=== PATIENT | female | born 2000 | race Caucasian/White ===

== ENCOUNTER 2020-01-17 22:54 | Emergency (ER) | payer MEDICAID, SELFPAY ==
[2020-01-17 23:37] VITALS: BP 118/73; PULSE 116; RESP 18; TEMP 36.7; O2SAT 98; BMI 21.2
--- NOTE | 2020-01-18 00:01 | USR_ITS ---
PROCEDURE INFORMATION: Exam: US First Trimester, Transabdominal Exam date and time: 01/18/2020 12:43 AM Age: 20 years old Clinical indication: Lmp or gestational age (in weeks): 7w5d; Other: Spotting x2 hrs; ; Additional info: Cramping, vaginal bleeding TECHNIQUE: Imaging protocol: Real-time transabdominal obstetrical ultrasound of the maternal pelvis and a first trimester , less than 14 weeks 0 days, with image documentation. COMPARISON: [facility] OB > 14 weeks 07/19/2018 9:27 AM FINDINGS: Gestation: Single, live intrauterine with a crown-rump length compatible with a 7 week, 3 day gestation. The heart rate is 150 beats per minute. The estimated due date is 09/02/2020. MATERNAL: Uterus: Unremarkable. Cervix: Unremarkable. Right adnexa: The right ovary is not visualized, likely secondary to bowel gas. Left adnexa: 2.1 cm simple left ovarian cyst, within physiologic range. Intraperitoneal space: No intraperitoneal free fluid. Urinary bladder: The visualized portion of the urinary bladder is unremarkable. US/US OB <= 14 weeks fetus [id number] IMPRESSION: Single, live intrauterine with a crown-rump length compatible with a 7 week, 3 day gestation. The heart rate is 150 beats per minute.
[2020-01-18 00:30] VITALS: BP 117/80; RESP 16
[2020-01-18 00:36] LABS: Basophils % 0.4 %; Hematocrit 39.6 % (37.0-47.0); Hemoglobin 12.8 g/dL (11.5-15.3); Lymphocytes # 1.7 10^3/uL (0.8-4.8); Lymphocytes % 22.1 %; Mean Corpuscular HGB Conc 32.3 g/dL (30.0-36.0); Mean Corpuscular Hemoglobin 29.4 pg (28.0-34.0); Mean Platelet Volume 11.3 fL (7.4-10.4); Monocytes # 0.5 10^3/uL (0.2-0.9); Monocytes % 6.8 %; Neutrophils # 5.31 10^3/uL (1.8-7.7); Neutrophils % 70.3 %; Nucleated Red Blood Cells % 0 %; Platelet Count 242 10^3/cmm (130-400); Red Blood Count 4.35 10^6/uL (4.1-5.3); Red Cell Distribution Width 13.2 % (12.1-15.1); White Blood Count 7.6 10^3/uL (4.0-10.0)
[2020-01-18 00:45] LABS: Add Urine Microscopic? NO
[2020-01-18 00:50] LABS: Bilirubin Urine Neg (NEGATIVE); Blood Urine Neg (Negative); Glucose Urine UA Norm (Normal); Ketones Urine Negative (Negative); Leukocyte Esterase Urine Negative (Negative); Nitrate Urine Negative (Negative); Protein Urine Neg (Negative); Urine Appearance Clear (CLEAR); Urine Color Straw (Yellow); Urobilinogen Urine Norm (Negative); pH Urine 7 (5-7)
[2020-01-18] MEDS: sodium chloride 0.9% 1,000 ML 999 ML IV (00:55)
[2020-01-18 01:09] LABS: Alanine Aminotransferase 10 U/L (0-33); Albumin Level 4.3 g/dL (3.5-5.2); Alkaline Phosphatase 40 IU/L (35-105); Blood Urea Nitrogen 8 mg/dL (6-20); Calcium 9.6 mg/dL (8.5-10.5); Carbon Dioxide 23 mmol/L (22-29); Chloride 105 mmol/L (98-107); Creatinine Clr Calc Pharmacy 123.5464; Globulin 2.3 g/dL (1.3-4.6); Glucose 98 mg/dL (65-115); Osmolality Calculated 282 mOsm/kg (285-295); Sodium 138 mmol/L (136-145); Total Bilirubin 0.2 mg/dL (0.15-1.2); Total Protein 6.6 g/dL (6.6-8.7)
[2020-01-18 01:14] LABS: Anion Gap 14.8 (5-19); Aspartate Amino Transferase 18 U/L (0-32); Potassium 4.8 mmol/L (3.5-5.1)
[2020-01-18 02:33] VITALS: BP 121/82; PULSE 61; RESP 16
--- NOTE | 2020-01-18 18:23 | W.ED.PREGNAN ---
HPI - General: Chief complaint: Vaginal Bleeding Stated complaint: x 8 weeks, spotting Time Seen by Provider: 01/17/20 23:43 History of Present Illness: HPI Narrative: 20-year-old female believes she is somewhere between 2 to 3 months . She presents today with some spotting, after intercourse. No clots. She is cramping a bit. No fever, no vomiting, no other significant symptoms. 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 She is a G5, P1. MD Complaint: abdominal pain and vaginal bleeding Onset (ago): hour(s) Pain Consistency: intermittent Location: pelvis Severity: moderate Quality: Cramping Radiation: pelvis Relieving factors: none Exacerbating factors: none Vaginal discharge: none Vaginal bleeding: light Date of Last Menstrual Period: 11/22/19 Associated symptoms: Reports abdominal pain and nausea; Deny dysuria, headache(s) or vomiting Related Data: : 2 Review of Systems Const: Denies: fever(s) or chills ENMT: Denies: bleeding gums or sinus pain Card: Denies: chest pain or palpitations Resp: Denies: dyspnea, productive cough, non-productive cough or wheezing GI: Reports: abdominal pain and nausea; Denies: vomiting : Denies: dysuria or hematuria Musc: Reports: back pain; Denies: neck pain Skin/Breast: Denies: rash, pruritus or erythema Neuro: Denies: headache(s) or dizziness Psych: Denies: anxiety PFSH ED PFSH: Social History Current gender identity: Female Female Reproductive History: Date of last menstrual period: 11/22/19 : 2 Physical Exam Const: GENERAL APPEARANCE: well developed ORIENTATION/CONSCIOUSNESS: Yes oriented to person, Yes oriented to place and Yes oriented to time HENMT: COMMON NORMALS: normocephalic, external ears normal and Normal external nose present HEAD & SCALP: normocephalic FACE & SINUS: normal facial exam NOSE: Normal external nose present and No nasal discharge present EXTERNAL EAR: Yes external ears normal MOUTH: tongue normal Eye: COMMON NORMALS: Equal, round and reactive pupils present, EOMs intact bilaterally and conjunctivae normal EYELID: eyelids normal CONJUNCTIVA: Yes conjunctivae normal PUPIL: Yes Equal, round and reactive pupils present Neck/C-Spine: GENERAL: No tracheal deviation Chest: COMMONS NORMALS: normal inspection of the chest CHEST: No tenderness Resp: COMMON NORMALS: clear to auscultation bilaterally EFFORT & INSPECTION: No tachypneic, No respiratory distress, No retractions, No uses accessory muscles and No tracheal deviation AUSCULTATION: clear to auscultation bilaterally, no rhonchi, no wheezes and lung sounds not diminished Cardio: COMMON NORMALS: regular rate and regular rhythm RATE: regular rate RHYTHM: regular rhythm HEART SOUNDS: no murmurs PERIPHERAL PULSES: radial pulses present GI: INSPECTION: No abdominal distension AUSCULTATION: No Hyperactive bowel sounds present and No Hypoactive bowel sounds present PALPATION: Yes Tenderness to palpation present (GI) (Mild pelvic), No Guarding due to palpation present (GI) and No Rigid due to palpation PERCUSSION: no dullness to percussion and no tympanic to percussion : COMMON NORMALS: Yes no CVA tenderness BLADDER/KIDNEY EXAM: Yes no CVA tenderness Back/Pelvis: COMMON NORMALS: no CVA tenderness Neuro: SENSORIUM/ORIENTATION: Yes oriented to person, Yes oriented to place and Yes oriented to time Psych: COMMON NORMALS: mental status grossly normal Skin: COMMON NORMALS: no rashes or lesions noted GENERAL SKIN EXAM: no rashes or lesions noted Course Vital Signs: Vital signs: Vital Signs Temperature 98.1 F 01/17/20 23:37 Pulse Rate 61 01/18/20 02:33 Respiratory Rate 16 01/18/20 02:33 Blood Pressure 121/82 01/18/20 02:33 Pulse Oximetry 98 01/17/20 23:37 MDM - OB/Uterine Contractions MDM Narrative: Medical decision making narrative: Labs are normal. Serum quantitative test is appropriate. Urinalysis is negative. Ultrasound reveals an intrauterine of appropriate date. Good heart rate. Cervix is closed. Lab Data: Labs: Lab Results 01/18/20 01/18/20 01/18/20 Range/Units 00:23 00:23 00:23 WBC 7.6 (4.0-10.0) 10^3/ uL RBC 4.35 (4.1-5.3) 10^6/u L Hgb 12.8 (11.5-15.3) g/dL Hct 39.6 (37.0-47.0) % MCV 91.0 (81-99) fL MCH 29.4 (28.0-34.0) pg MCHC 32.3 (30.0-36.0) g/dL RDW 13.2 (12.1-15.1) % Plt Count 242 (130-400) 10^3/c mm MPV 11.3 H (7.4-10.4) fL Neut % (Auto) 70.3 % Lymph % (Auto) 22.1 % [place] % (Auto) 6.8 % Eos % (Auto) 0.0 % Baso % (Auto) 0.4 % Neut # (Auto) 5.31 (1.8-7.7) 10^3/u L Lymph # (Auto) 1.7 (0.8-4.8) 10^3/u L [place] # (Auto) 0.5 (0.2-0.9) 10^3/u L Eos # (Auto) 0.0 (0.0-0.8) 10^3/u L Baso # (Auto) 0.0 (0.0-0.1) 10^3/u L Nucleated RBC % (a uto) 0 % Nucleated RBCs # 0.0 /100WBC Sodium 138 (136-145) mmol/L Potassium 4.8 (3.5-5.1) mmol/L Chloride 105 (98-107) mmol/L Carbon Dioxide 23 (22-29) mmol/L Anion Gap 14.8 (5-19) BUN 8 (6-20) mg/dL Creatinine 0.6 (0.5-0.9) mg/dL GFR Calculation 125.0 (90-130) mL/min Glucose 98 (65-115) mg/dL Calculated Osmolal ity 282 L (285-295) mOsm/k g Calcium 9.6 (8.5-10.5) mg/dL Total Bilirubin 0.2 (0.15-1.2) mg/dL AST 18 (0-32) U/L ALT 10 (0-33) U/L Alkaline Phosphata se 40 (35-105) IU/L Total Protein 6.6 (6.6-8.7) g/dL Albumin 4.3 (3.5-5.2) g/dL Globulin 2.3 (1.3-4.6) g/dL Ser , Kiki i-Qnt 760187.00 mIU/mL Urine Color (Yellow) Urine Appearance (CLEAR) Urine pH (5-7) Ur Specific Gravit y (1.005-1.030) Urine Protein (Negative) Urine Glucose (UA) (Normal) Urine Ketones (Negative) Urine Blood (Negative) Urine Nitrate (Negative) Urine Bilirubin (NEGATIVE) Urine Urobilinogen (Negative) mg/dL Ur Leukocyte Amelia ase (Negative) Blood Type O Positive Rho(D) Type Positive 01/18/20 Range/Units 00:33 WBC (4.0-10.0) 10^3/ uL RBC (4.1-5.3) 10^6/u L Hgb (11.5-15.3) g/dL Hct (37.0-47.0) % MCV (81-99) fL MCH (28.0-34.0) pg MCHC (30.0-36.0) g/dL RDW (12.1-15.1) % Plt Count (130-400) 10^3/c mm MPV (7.4-10.4) fL Neut % (Auto) % Lymph % (Auto) % [place] % (Auto) % Eos % (Auto) % Baso % (Auto) % Neut # (Auto) (1.8-7.7) 10^3/u L Lymph # (Auto) (0.8-4.8) 10^3/u L [place] # (Auto) (0.2-0.9) 10^3/u L Eos # (Auto) (0.0-0.8) 10^3/u L Baso # (Auto) (0.0-0.1) 10^3/u L Nucleated RBC % (a uto) % Nucleated RBCs # /100WBC Sodium (136-145) mmol/L Potassium (3.5-5.1) mmol/L Chloride (98-107) mmol/L Carbon Dioxide (22-29) mmol/L Anion Gap (5-19) BUN (6-20) mg/dL Creatinine (0.5-0.9) mg/dL GFR Calculation (90-130) mL/min Glucose (65-115) mg/dL Calculated Osmolal ity (285-295) mOsm/k g Calcium (8.5-10.5) mg/dL Total Bilirubin (0.15-1.2) mg/dL AST (0-32) U/L ALT (0-33) U/L Alkaline Phosphata se (35-105) IU/L Total Protein (6.6-8.7) g/dL Albumin (3.5-5.2) g/dL Globulin (1.3-4.6) g/dL Ser , Kiki i-Qnt mIU/mL Urine Color Straw (Yellow) Urine Appearance Clear (CLEAR) Urine pH 7 (5-7) Ur Specific Gravit y 1.000 L (1.005-1.030) Urine Protein Neg (Negative) Urine Glucose (UA) Norm (Normal) Urine Ketones Negative (Negative) Urine Blood Neg (Negative) Urine Nitrate Negative (Negative) Urine Bilirubin Neg (NEGATIVE) Urine Urobilinogen Norm (Negative) mg/dL Ur Leukocyte Amelia ase Negative (Negative) Blood Type Rho(D) Type Discharge Plan Discharge Patient Disposition: Home Clinical Impression: Intrauterine , PCB (post coital bleeding) Condition: Stable Discharge Orders: Discharge Order (Routine); Ordered 01/18/20 Ordered By: Robby White Referrals: Burton Limon MD [Primary Care Provider] - 4-7 days Discharge Diet: Usual diet Discharge Activity: Limit activity as instructed Patient Instructions: Threatened Miscarriage (ED), (ED) Activity Restrictions/Additional Instructions: Your ultrasound revealed a normal . Since you have spotted, you are to remain on pelvic rest until cleared by your doctor. This means no sexual intercourse, no lifting greater than 10 to 15 pounds, and limiting stairs and squatting. Return for passing blood clots, soaking more than 1 pad per hour for more than 3 hours, worsening pain, fever greater than 100, other concerning symptoms. Discharge Date/Time: 01/18/20 02:40 Coding Level of Care Code ED Transportation Analyst for Lisa Fwd Exam Comprehensive
== END 2020-01-18 02:40 | disposition home or self-care (01) ==
PROVIDERS: Emergency Provider Emergency Medicine; PCP Family Medicine
DX: O46.8X1 Other antepartum hemorrhage, first trimester (principal); Z3A.01 Less than 8 weeks gestation of pregnancy
CPT/HCPCS: 12345; 76801; 80053; 81003; 84702; 85025; 86900; 96360; 99282; 99283; J7030

== ENCOUNTER → 2020-01-28 14:51 | Outpatient (BNVA) | payer MEDICAID, SELFPAY | PROVIDERS: PCP Family Medicine; Visit Provider Psychiatry & Neurology Psychiatry | DX: F33.1 Major depressive disorder, recurrent, moderate (principal); F43.10 Post-traumatic stress disorder, unspecified | CPT/HCPCS: 90792 ==

== ENCOUNTER 2020-06-28 02:46 | Outpatient (CLI) | payer MEDICAID, SELFPAY ==
[2020-06-28 02:46] VITALS: BMI 22.1
[2020-06-28 02:55] VITALS: BP 110/73; PULSE 104; TEMP 36.2
[2020-06-28 03:15] VITALS: BP 120/78; PULSE 105
[2020-06-28 03:20] VITALS: PULSE 94; O2SAT 100
[2020-06-28 03:25] VITALS: PULSE 98; O2SAT 100
[2020-06-28 03:30] VITALS: BP 120/78; PULSE 98; RESP 16; TEMP 36.2; O2SAT 100
== END 2020-06-28 03:35 | disposition home or self-care (01) ==
LOC: OPOB 02:47 → OBGYN 02:47
PROVIDERS: PCP Family Medicine; Visit Provider Family Medicine
DX: O26.899 Other specified pregnancy related conditions, unspecified trimester (principal); Z3A.00 Weeks of gestation of pregnancy not specified; R10.9 Unspecified abdominal pain
CPT/HCPCS: 59025; 99211

== ENCOUNTER 2020-07-04 21:47 | Outpatient (CLI) | payer MEDICAID, SELFPAY ==
[2020-07-04 22:16] VITALS: TEMP 37
[2020-07-04] MEDS: ondansetron 4 MG Tablet PO (22:16)
[2020-07-04 22:26] VITALS: BMI 26.7
[2020-07-04 22:56] LABS: Add Urine Culture? No; Bacteria Urine 2+ /hpf; Bilirubin Urine Neg (Negative); Blood Urine Neg (Negative); Glucose Urine UA Norm (Normal); Ketones Urine Negative (Negative); Leukocyte Esterase Urine 2+ (Negative); Nitrate Urine Negative (Negative); Protein Urine Neg (Negative); RBC Urine 0-4 /hpf (0-2); Squamous Epithelial Cell Urine TOO NUMEROUS TO CNT /hpf (0-5); Urine Color Yellow (Yellow); Urobilinogen Urine 1 mg/dL (Negative); WBC Urine >100 /hpf (0-5); pH Urine 6 (5-7)
[2020-07-04 23:15] VITALS: BP 109/70; PULSE 173; TEMP 36.7
[2020-07-04 23:25] LABS: Amphetamines Screen Urine Negative (Negative); Barbiturates Screen Urine Negative (Negative); Benzodiazepines Screen Urine Negative (Negative); Cocaine Screen Urine Negative (Negative); Opiate Screen Urine Negative (Negative); PCP Screen Urine Negative (Negative); THC Screen Urine Negative (Negative)
[2020-07-04] MEDS: cefTRIAXone 1,000 mg SDV 1000 MG IM (23:58)
[2020-07-05 00:17] VITALS: RESP 16
== END 2020-07-04 23:45 | disposition home or self-care (01) ==
LOC: OPOB 21:48 → OBGYN 23:33
PROVIDERS: PCP Family Medicine; Visit Provider Family Medicine
DX: O21.9 Vomiting of pregnancy, unspecified (principal); Z3A.00 Weeks of gestation of pregnancy not specified
CPT/HCPCS: 59025; 80306; 81001; 87086; 96372; 99211; J0696; Q0162

== ENCOUNTER 2020-08-07 19:06 | Inpatient (IN) | payer MEDICAID, SELFPAY ==
[2020-08-07] VITALS (54 sets, daily range): BP systolic 73–153; BP diastolic 44–99; PULSE 64–123; RESP 17; TEMP 36.3–36.4; O2SAT 94–100; BMI 26.4
[2020-08-07] MEDS: ampicillin 2,000 MG in sodium chloride 0.9% (plus) 50 ML 100 MG IV (19:52)
[2020-08-07] MEDS: dextrose 5%-lactated ringers 1,000 ML 125 ML IV (19:52)
[2020-08-07 19:55] LABS: Basophils % 0.3 %; Eosinophils # 0.1 10^3/uL (0.0-0.8); Eosinophils % 0.7 %; Hematocrit 33.3 % (37.0-47.0); Hemoglobin 10.2 g/dL (11.5-15.3); Lymphocytes # 2.5 10^3/uL (0.8-4.8); Lymphocytes % 23.3 %; Mean Corpuscular HGB Conc 30.6 g/dL (30.0-36.0); Mean Corpuscular Hemoglobin 26.1 pg (28.0-34.0); Mean Corpuscular Volume 85.2 fL (81-99); Mean Platelet Volume 11.1 fL (7.4-10.4); Monocytes # 0.9 10^3/uL (0.2-0.9); Monocytes % 8.8 %; Neutrophils # 7.04 10^3/uL (1.8-7.7); Neutrophils % 65.6 %; Nucleated Red Blood Cells % 0 %; Platelet Count 257 10^3/cmm (130-400); Red Blood Count 3.91 10^6/uL (4.1-5.3); Red Cell Distribution Width 14.6 % (12.1-15.1); White Blood Count 10.7 10^3/uL (4.0-10.0)
[2020-08-07 20:22] LABS: Amphetamines Screen Urine Negative (Negative); Barbiturates Screen Urine Negative (Negative); Benzodiazepines Screen Urine Negative (Negative); Cocaine Screen Urine Negative (Negative); Opiate Screen Urine Negative (Negative); PCP Screen Urine Negative (Negative); THC Screen Urine Negative (Negative)
[2020-08-07] MEDS: lactated ringers 1,000 ML 999 ML IV (21:20)
--- NOTE | 2020-08-07 22:37 | P.ANESASSM_ITS ---
Pre-Anesthetic Assessment Pre-Anesthetic Assessment: Height/Weight: Height 1.63 m Weight 69.853 kg Temp Pulse Resp BP Pulse Ox 97.3 F L 112 H 17 128/84 100 08/07/20 18:36 08/07/20 22:32 08/07/20 18:39 08/07/20 22:32 08/07/20 22:30 Preop Diagnosis: Labor Pain Proposed Procedure: SILVIA Was Beta Pilar taken within 24 hours: N/A Social: Social History: Tobacco and No alcohol Exam: Pre-Anes Outpt Exam: alert, oriented x 3, clear to auscultation bilaterally and regular rate & rhythm Airway: Submandibular: WNL Cervical ROM: WNL MP: 2 Dentition: Full History/ROS: No significant history except as noted and No significant complaints Pulmonary: Pulmonary: None reported CV/HEM: CV/HEM: None reported : : None reported Hepatic: Hepatic: None reported GI: GI: None reported Metabolic: Metabolic: None reported Musc/skel: Musc/skel: None reported Neuropsych: Neuropsych: None reported Anesthetic Plan: ASA status: 2 Anesthesia: Anesthesia Evaluation and Regional (specify below) Risk of > 500 ml blood loss (7ml/kg in children): No Meds/Allergies Current Medications: Current Medications Generic Name Dose Route Start Last Admin Trade Name Freq PRN Reason Stop Dose Admin Dextrose/Lactated Ringer's 1,000 mls @ 125 m ls/hr 08/07/20 19:00 08/07/20 19:52 Dextrose 5%-Lact ated Ringers IV 125 mls/hr .Q8H NEHEMIAS Administration Lactated Ringer's 1,000 mls @ 999 m ls/hr 08/07/20 19:19 08/07/20 21:20 Lactated Ringers IV 999 mls/hr .Q1H1M PRN Administration See label comment s PFSH Anesthesia PFSH: Medical History (Updated 01/28/20 @ 16:04 by Shelli Davila MD) Major depressive disorder PTSD (post-traumatic stress disorder) Social History Current gender identity: Female Female Reproductive History: Date of last menstrual period: 11/22/19 : 2 Data Anesthesia CBC & Chem 7: 08/07/20 19:10 Other Labs: Laboratory Results - last 48 hr 08/07/20 08/07/20 19:10 19:55 WBC 10.7 H RBC 3.91 L Hgb 10.2 L Hct 33.3 L MCV 85.2 MCH 26.1 L MCHC 30.6 RDW 14.6 Plt Count 257 MPV 11.1 H Neut % (Auto) 65.6 Lymph % (Auto) 23.3 [place] % (Auto) 8.8 Eos % (Auto) 0.7 Baso % (Auto) 0.3 Neut # (Auto) 7.04 Lymph # (Auto) 2.5 [place] # (Auto) 0.9 Eos # (Auto) 0.1 Baso # (Auto) 0.0 Nucleated RBC % (auto) 0 Nucleated RBCs # 0.0 Urine Opiates Screen Negative Ur Barbiturates Screen Negative Ur Phencyclidine Scrn Negative Ur Amphetamines Screen Negative U Benzodiazepines Scrn Negative Urine Cocaine Screen Negative U Marijuana (THC) Screen Negative Cardiac Studies: No Data to Display
--- NOTE | 2020-08-07 22:39 | ANES.PROC ---
Anesthesia Procedures Procedure/Date: 08/07/20 Epidural: Time Out Performed: Yes Consents Signed: Procedure Consent Consent: requested by attending/covering physician, from patient, risks and benefits reviewed and patient agrees to proceed Lumbar Level: L3-L4 Epidural position: sitting Epidural procedure: sterile prep of area, 1% lidocaine to numb the area, 18 g needle, neg for paresthesia (OSCAR at 6 cm. Cath passed 2 cm into space), test dose given, 1.5% xylocaine 1:200k epi, 0.2% Ropivacaine bolus ml (13cc/hour), placed PCEA, no systemic response, sterile dressing applied, L.U.D. no apparent complications and 0.2% Ropiavacaine @ mls/hr
[2020-08-07] MEDS: ampicillin 1,000 MG in sodium chloride 0.9% (plus) 50 ML 100 MG IV (23:33)
[2020-08-08] VITALS (100 sets, daily range): BP systolic 76–158; BP diastolic 42–97; PULSE 54–115; RESP 16–18; TEMP 36.2–37; O2SAT 85–100
--- NOTE | 2020-08-08 01:18 | PC.NURSE ---
Patients grandmother came to unit to drop off driving school instructor and asked to speak with RN taking care of patient. This RN talks with grandmother who states that patient does not have custody of her first child, is currently homeless, no money to care for child, has not bought anything for child and does not have a place to live once the baby is born.
[2020-08-08] MEDS: ampicillin 1,000 MG in sodium chloride 0.9% (plus) 50 ML 100 MG IV ×3 (03:36→11:01)
[2020-08-08] MEDS: dextrose 5%-lactated ringers 1,000 ML 125 ML IV ×2 (03:36→11:02)
[2020-08-08] MEDS: oxytocin 30 UNIT/500 ML BAG IV (07:33)
[2020-08-08] MEDS: ondansetron 2 mg/ML SDV 2 mL 4 MG IVP (11:01)
[2020-08-08] MEDS: diphenhydrAMINE 50 mg/mL SDV 1mL 25 MG IVP (12:54)
--- NOTE | 2020-08-08 13:01 | P.PCNOB_ITS ---
Delivery Note: Date of delivery: August 08, 2020 Pre-Delivery Course: The patient is a 3 para 1-0-1-1 who presented to the hospital in active labor. Her was remarkable for being positive for amphetamines in her first trimester. Her drug screens have been negative since her first 2 were found to be positive. Her blood type is O+. The remainder of her labs were within normal limits. She was found to be 5 cm dilated and 70% effaced with a bulging bag. She is apolonia every 5 minutes. An epidural was placed. She gradually changed to 7 cm dilated. At 1 point an amniotomy was performed. She then had some Pitocin placed because she was still not changing. She then progressed to complete without difficulty. Delivery: DELIVERY: The patient progressed to complete without difficulty. She delivered a male with a weight of 6 pounds 10 ounces with Apgars of 8, 9. The baby was delivered from the CHAVA position. The baby was then completely delivered and placed on the mother's abdomen. The cord was then clamped and cut approximately 1 minute after delivery. There was no nuchal cord. There was no meconium. The mouth and nose were suctioned after the mother was placed on the mother's abdomen. The placenta and 3 vessel cord were delivered intact shortly thereafter. The perineum and vaginal vault were carefully examined. No lacerations were noted. Both the mother and the baby were in stable condition. Post-Delivery Status: Good A&P Assessment and plan (1) 36 weeks gestation of : I anticipate routine care. The mother was made aware that DFS will be contacted because of the first trimester amphetamine positive drug screens. Status: Acute (2) Spontaneous vaginal delivery: Status: Acute Coding Level of Care Code Acute Digital Sales Manager for Chg Fwd Diagnoses 36 weeks gestation of Z3A.36 Spontaneous vaginal delivery O80
[2020-08-08] MEDS: ibuprofen 800 mg tablet PO ×2 (14:47→20:02)
[2020-08-08] MEDS: lanolin oint 7 gm 1 APPLIC TOPICAL (14:47)
[2020-08-08] MEDS: benzocaine-menthol 78 gm Canister 1 SPRAY TOPICAL (14:47)
[2020-08-08] MEDS: docusate sodium 100 mg Capsule PO (20:02)
--- NOTE | 2020-08-08 20:11 | P.DS_ITS ---
Discharge Providers BOTTOM HOOP DRIVER Date of Admission: 08/07/20 19:06 Date of Discharge: 08/08/20 Attending Provider at Admission: Burton Limon MD Attending Provider at Discharge: Burton Limon MD Primary Care Provider: Burton Limon MD Diagnoses at Discharge Discharge Diagnosis (1) 36 weeks gestation of : Status: Acute (2) Spontaneous vaginal delivery: Status: Acute Reason for Visit Reason for Visit: Contractions Hospital Course Hospital Course The patient presented to the hospital with contractions occurring every 5 minutes or less the cervix at 5 cm dilated and 90% effaced. She continued to have painful contractions elected to have an epidural. The following morning and amniotomy was performed. Pitocin was then added for augmentation. The patient progressed to complete without difficulty. She had unremarkable delivery of a male infant. Her course has been unremarkable. Her infant is being transferred to [place] due to potential congenital cardiac abnormalities. As result she wishes to be discharged this evening. Her course has been unremarkable. Her bleeding has been within normal limits. Her vitals have been stable. There have been no concerns. Information Peripartum Data: Delivery Method: Vaginal Physical Exam Narrative: EXAM NARRATIVE: The patient is alert. She appears comfortable. Her heart has a regular rate and rhythm with no murmurs appreciated. Lungs are clear to auscultation bilaterally. Her fundus is firm and below the umbilicus. Urinary Catheter Management^: Martin Latex: Cath Placed During This Visit: yes Reason for Continuing Indwelling Catheter: Required Immobilization for Trauma or Surgery or Anesthesia Urinary Catheter Date of Insertion: 08/08/20 Urinary Catheter Time of Insertion: 12:20 Discharge Data Data Completed and Pending: Pending at discharge Category Date Time Status COVID [Coronaviru s Test Green Count y] Routine Lab 08/07/20 22:11 Received Hemagram Timed Lab 08/09/20 00:54 Uncollected Labs from last 24 hours 08/08/20 08/07/20 06:36 19:55 Urine Opiates Scre en Negative Ur Barbiturates Sc reen Negative Ur Phencyclidine S crn Negative Ur Amphetamines Sc reen Negative U Benzodiazepines Scrn Negative Urine Cocaine Scre en Negative U Marijuana (THC) Screen Negative Nasal/Oral COVID-1 9 PCR Pending Vitals: Last Vital Signs Temp 97.5 F L 08/08/20 19:55 Pulse 95 08/08/20 19:55 Resp 18 08/08/20 17:49 BP 121/78 08/08/20 19:55 Pulse Ox 99 08/08/20 19:55 Discharge Plan Discharge Patient Disposition: Home Condition: Stable Prescriptions: New ibuprofen 800 mg Tablet 800 mg PO TID Qty: 30 RF: 0 Discharge Orders: Discharge Order (Routine); Ordered 08/08/20 Ordered By: Burton Limon Discharge Diet: Usual diet Discharge Activity: Limit activity as instructed Patient Instructions: OB Discharge Report, OB Food/Drug Interaction Guide, OB Care at Home, OB Proud Parent Packet, OB Vaginal Deliveries Discharge Attestations BOTTOM HOOP DRIVER Time Spent in Discharge Care*: less than 30 min Coding Level of Care Code Acute Circuit Board Assembler for Chg Fwd Diagnoses 36 weeks gestation of Z3A.36 Spontaneous vaginal delivery O80
[2020-08-08 20:35] LABS: Basophils # 0.1 10^3/uL (0.0-0.1); Basophils % 0.3 %; Eosinophils # 0.1 10^3/uL (0.0-0.8); Eosinophils % 0.3 %; Hematocrit 28.1 % (37.0-47.0); Hemoglobin 8.8 g/dL (11.5-15.3); Lymphocytes # 3.2 10^3/uL (0.8-4.8); Lymphocytes % 18.2 %; Mean Corpuscular HGB Conc 31.3 g/dL (30.0-36.0); Mean Corpuscular Hemoglobin 26.4 pg (28.0-34.0); Mean Corpuscular Volume 84.4 fL (81-99); Mean Platelet Volume 10.6 fL (7.4-10.4); Monocytes # 1.6 10^3/uL (0.2-0.9); Neutrophils # 12.46 10^3/uL (1.8-7.7); Neutrophils % 71.5 %; Nucleated Red Blood Cells % 0.1 %; Platelet Count 196 10^3/cmm (130-400); Red Blood Count 3.33 10^6/uL (4.1-5.3); Red Cell Distribution Width 14.6 % (12.1-15.1); White Blood Count 17.4 10^3/uL (4.0-10.0)
--- NOTE | 2020-08-08 20:43 | PC.NURSE ---
PATIENT'S RUBELLA NON-IMMUNE STATUS DISCUSSED. PATIENT VERBALIZED UNDERSTANDING. PATIENT REFUSED MMR VACCINE.
[2020-08-09 16:51] LABS: Coronavirus Test Green County Not Detected
== END 2020-08-08 21:20 | disposition home or self-care (01) | DRG 807 ==
LOC: OPOB 19:06 → OBGYN 19:06
PROVIDERS: Admitting Provider Family Medicine; PCP Family Medicine; Visit Provider Family Medicine
DX: O60.14X0 Preterm labor third trimester with preterm delivery third trimester, not applicable or unspecified (principal); Z37.0 Single live birth; Z3A.36 36 weeks gestation of pregnancy
CPT/HCPCS: 12345; 36415; 51702; 59025; 59409; 80306; 85025; 87635; 99211; J0290; J1200; J2405; J2795; J3010

== ENCOUNTER → 2021-02-24 14:13 | Outpatient (BNVA) | payer MEDICAID, SELFPAY | PROVIDERS: PCP Family Medicine; Visit Provider Nurse Practitioner Women's Health | DX: N92.6 Irregular menstruation, unspecified (principal); Z78.9 Other specified health status | CPT/HCPCS: 81025; 84702 ==

== ENCOUNTER → 2021-02-28 14:10 | Outpatient (BNVA) | payer MEDICAID, SELFPAY | PROVIDERS: PCP Family Medicine; Visit Provider Nurse Practitioner Women's Health | DX: Z78.9 Other specified health status (principal) | CPT/HCPCS: 84702 ==

== ENCOUNTER → 2021-04-12 10:14 | Outpatient (BNVA) | payer MEDICAID, SELFPAY | PROVIDERS: PCP Family Medicine; Visit Provider Obstetrics & Gynecology | DX: Z34.80 Encounter for supervision of other normal pregnancy, unspecified trimester (principal) | CPT/HCPCS: 80307; 84315; 85027; 86850; 86900; 87086 ==

== ENCOUNTER 2021-04-16 19:36 | Emergency (ER) | payer MEDICAID, SELFPAY ==
[2021-04-16 19:47] VITALS: BP 110/67; PULSE 139; RESP 20; TEMP 37.2; O2SAT 100; BMI 23.0
--- NOTE | 2021-04-16 19:54 | ECG_ITS ---
[facility] Test Date: 2021-04-16 Pat Name: Rohit Beverly Department: Room: Gender: Female Thickener Operator: : 2000 Requested By: Robby Finney Order Number: [id number] Ruelas MD: Rosa Gudino M.D. Measurements Intervals Clark Rate: 136 P: 82 MA: 120 QRS: 58 QRSD: 81 T: 47 QT: 330 QTc: 498 Interpretive Statements SINUS TACHYCARDIA NONSPECIFIC T-WAVE ABNORMALITY Compared to ECG 07/03/2017 19:02:12 T-wave abnormality now present Sinus rhythm no longer present Electronically Signed On 04-17-2021 13:13:23 MATERIALS MANAGEMENT MANAGER by Rosa Gudino M.D. [id number]
[2021-04-16 20:18] LABS: Basophils # 0.1 10^3/uL (0.0-0.1); Basophils % 0.6 %; Eosinophils % 0.4 %; Hematocrit 34.7 % (37.0-47.0); Hemoglobin 11.1 g/dL (11.5-15.3); Lymphocytes # 3.6 10^3/uL (0.8-4.8); Mean Corpuscular Volume 87.6 fl (81-99); Mean Platelet Volume 10.3 fL (7.4-10.4); Monocytes # 0.6 10^3/uL (0.2-0.9); Monocytes % 7.3 %; Neutrophils # 4.03 10^3/uL (1.8-7.7); Neutrophils % 48.5 %; Nucleated Red Blood Cells % 0 %; Platelet Count 289 10^3/cmm (130-400); Red Blood Count 3.96 10^6/uL (4.1-5.3); White Blood Count 8.3 10^3/uL (4.0-10.0)
[2021-04-16 20:37] LABS: Alanine Aminotransferase 7 U/L (0-33); Albumin Level 3.8 g/dL (3.5-5.2); Alkaline Phosphatase 47 IU/L (35-105); Anion Gap 15.9 (5-19); Aspartate Amino Transferase 10 U/L (0-32); Blood Urea Nitrogen 10 mg/dL (6-20); Calcium 8.7 mg/dL (8.5-10.5); Carbon Dioxide 22 mmol/L (22-29); Chloride 102 mmol/L (98-107); Creatinine Clr Calc Pharmacy 126.6763; Globulin 2.8 g/dL (1.3-4.6); Glomerular Filtration Rate 123.9 mL/min (90-130); Glucose 81 mg/dL (65-115); Osmolality Calculated 280 mOsm/kg (285-295); Potassium 3.9 mmol/L (3.5-5.1); Sodium 136 mmol/L (136-145); Total Bilirubin 0.3 mg/dL (0.15-1.2); Total Protein 6.6 g/dL (6.6-8.7)
--- NOTE | 2021-04-16 22:51 | PC.NURSE ---
2nd call no answer.
--- NOTE | 2021-04-16 23:05 | PC.NURSE ---
3rd call to waiting room pt no answer.
== END 2021-04-16 23:06 | disposition left against medical advice (07) ==
LOC: ER 19:51
PROVIDERS: Emergency Provider Emergency Medicine; PCP Family Medicine
DX: Z53.21 Procedure and treatment not carried out due to patient leaving prior to being seen by health care provider (principal)
CPT/HCPCS: 80053; 84702; 85025; 93005

== ENCOUNTER 2021-07-10 05:36 | Emergency (ER) | payer MEDICAID, SELFPAY ==
[2021-07-10 05:45] VITALS: BP 106/82; PULSE 85; RESP 18; TEMP 36.9; O2SAT 100; BMI 21.2
[2021-07-10 05:51] VITALS: BP 106/82; PULSE 85; RESP 18; TEMP 36.9; O2SAT 100
[2021-07-10] MEDS: dexamethasone 4 mg Tablet 8 MG PO (05:59)
[2021-07-10] MEDS: sulfamethoxazole-trimeth DS 160-800 mg Tablet 2 TAB PO (05:59)
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
[2021-07-10 06:08] VITALS: BP 106/82; PULSE 85; RESP 18; TEMP 36.9; O2SAT 100
== END 2021-07-10 06:11 | disposition home or self-care (01) ==
PROVIDERS: Emergency Provider Emergency Medicine; PCP Family Medicine
DX: L02.01 Cutaneous abscess of face (principal); F17.210 Nicotine dependence, cigarettes, uncomplicated
CPT/HCPCS: 99283; J8540

== ENCOUNTER → 2022-01-11 12:28 | Outpatient (BNVA) | payer MEDICAID, SELFPAY | PROVIDERS: PCP Family Medicine; Visit Provider Registered Nurse Neonatal Intensive Care | DX: Z20.822 Contact with and (suspected) exposure to COVID-19 (principal); U07.1 COVID-19 | CPT/HCPCS: 87426 ==

== ENCOUNTER 2022-05-24 14:57 | Emergency (ER) | payer MEDICAID, SELFPAY ==
[2022-05-24 15:06] VITALS: BP 106/69; PULSE 98; RESP 14; TEMP 36.7; O2SAT 100
--- NOTE | 2022-05-24 16:30 | USR_ITS ---
PROCEDURE INFORMATION: Exam: US , Transvaginal Exam date and time: 05/24/2022 5:17 PM Age: 22 years old Clinical indication: complicated by abdominal or pelvic pain; Lower; First trimester (<14 weeks 0 days); Gestational age or lmp: 7w1d; ; Additional info: 6 weeks ega with cramping LABS AND CLINICAL REPORTS: Last menstrual period start date: 04/04/2022 Gestational age (Established): 7 w 1 d Estimated due date (Established): 01/09/2023 TECHNIQUE: Imaging protocol: Real-time transvaginal obstetrical ultrasound of the maternal pelvis with image documentation. Transvaginal imaging was used for better evaluation of the fetus, adnexa, and/or cervix. COMPARISON: US OB <= 14 weeks fetus [facility] 04/12/2021 9:44 AM FINDINGS: Gestation: A single live intrauterine gestation is identified. Yolk sac measures 2.9 mm. [place]-rump length is 10 mm. Mean sac diameter is 2.8 cm. heart rate: Appropriate cardiac activity is documented. Heart rate is 150 bpm. Placenta: No subchorionic hemorrhage demonstrated. BIOMETRY: Gestational age (AUA): 7 w 1 d Mean sac diameter: EGA (MSD) is 8 w 1 d [place]-Rump length (CRL): 9.9 mm. EGA (CRL) is 7 w 1 d MATERNAL: Cervix: Cervical length measures 5.3 cm. Right ovary/adnexa: Right ovary measures 1.7 x 1.5 x 2.3 cm. Follicular type cysts are demonstrated. Appropriate ovarian blood flow demonstrated by duplex imaging. Left ovary/adnexa: Left ovary measures 2.1 x 2.5 x 2.7 cm. Follicular type cysts are demonstrated. Appropriate ovarian blood flow demonstrated by duplex imaging. Intraperitoneal space: Minimal free intraperitoneal fluid is seen in the cul-de-sac, likely physiologic. US/US OB transvaginal [id number] IMPRESSION: 1. A single live intrauterine gestation is identified. Biometric measurements correlate to a gestational age of 7 weeks 1 day. Appropriate cardiac activity is documented. 2. No acute abnormality demonstrated.
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
--- NOTE | 2022-05-24 16:38 | PC.PHAR ---
pt states she takes no rx or otc medications
[2022-05-24 16:40] VITALS: BP 118/79; BP 119/68; PULSE 93; O2SAT 98
[2022-05-24 16:45] LABS: Add Urine Microscopic? NO; Charge for UA Resulting for Rev
[2022-05-24 16:47] LABS: Bilirubin Urine Neg (Negative); Blood Urine Neg (Negative); Glucose Urine UA Norm (Normal); Ketones Urine Negative (Negative); Leukocyte Esterase Urine Negative (Negative); Nitrate Urine Negative (Negative); Protein Urine Neg (Negative); Specific Gravity, Urine 1.015 (1.005-1.030); Urine Appearance Clear (CLEAR); Urine Color Yellow (Yellow); Urobilinogen Urine Norm (Negative); pH Urine 6 (5-7)
[2022-05-24 18:00] VITALS: BP 106/63; O2SAT 100
== END 2022-05-24 19:20 | disposition home or self-care (01) ==
PROVIDERS: Emergency Provider Emergency Medicine; PCP Family Medicine
DX: O26.891 Other specified pregnancy related conditions, first trimester (principal); R10.2 Pelvic and perineal pain; Z3A.01 Less than 8 weeks gestation of pregnancy; O99.331 Smoking (tobacco) complicating pregnancy, first trimester; F17.210 Nicotine dependence, cigarettes, uncomplicated
CPT/HCPCS: 36415; 76817; 81003; 84702; 99284

== ENCOUNTER 2022-07-07 14:20 | Emergency (ER) | payer MEDICAID, SELFPAY ==
[2022-07-07 14:49] VITALS: BP 107/71; PULSE 105; TEMP 36.7; O2SAT 96; BMI 28.0
--- NOTE | 2022-07-07 15:53 | USR_ITS ---
PROCEDURE INFORMATION: Exam: US , Limited Exam date and time: 07/07/2022 4:41 PM Age: 22 years old Clinical indication: Lmp or gestational age (in weeks): 14 weeks; Antepartum complications; Bleeding; ; Additional info: 13 weeks , vaginal bleeding TECHNIQUE: Imaging protocol: Real-time ultrasound of the maternal uterus with image documentation. Exam focused on the clinical indication. COMPARISON: US transvaginal [id number] 05/24/2022 5:17 PM FINDINGS: Gestation: Single intrauterine without abnormality. heart rate: heart rate 157 bpm. BIOMETRY: Femur length (FL): Ultrasonographic age 14 weeks 0 days based on femur length. MATERNAL: Cervix: Cervix closed and normal length measuring 4.1 cm. US/US OB limited [id number] IMPRESSION: Single intrauterine without abnormality.
[2022-07-07 16:30] LABS: Basophils % 0.5 %; Eosinophils # 0.1 10^3/uL (0.0-0.8); Eosinophils % 1.4 %; Hematocrit 33.1 % (37.0-47.0); Hemoglobin 10.2 g/dL (11.5-15.3); Lymphocytes # 2.5 10^3/uL (0.8-4.8); Lymphocytes % 29.1 %; Mean Corpuscular HGB Conc 30.8 g/dL (30.0-36.0); Mean Corpuscular Hemoglobin 25.9 pg (28.0-34.0); Monocytes # 0.6 10^3/uL (0.2-0.9); Monocytes % 6.6 %; Neutrophils # 5.38 10^3/uL (1.8-7.7); Neutrophils % 62.1 %; Nucleated Red Blood Cells % 0 %; Platelet Count 283 10^3/cmm (130-400); Red Blood Count 3.94 10^6/uL (4.1-5.3); Red Cell Distribution Width 15.9 % (12.1-15.1); White Blood Count 8.7 10^3/uL (4.0-10.0)
[2022-07-07 16:32] VITALS: BP 108/72; PULSE 90; TEMP 37.2; O2SAT 99
[2022-07-07 16:55] LABS: Alanine Aminotransferase 9 U/L (0-33); Albumin Level 3.6 g/dL (3.5-5.2); Alkaline Phosphatase 51 U/L (35-105); Aspartate Amino Transferase 18 U/L (0-32); Blood Urea Nitrogen 13 mg/dL (6-20); Calcium 8.9 mg/dL (8.5-10.5); Carbon Dioxide 22 mmol/L (22-29); Chloride 103 mmol/L (98-107); Globulin 3.1 g/dL (1.3-4.6); Glomerular Filtration Rate 122.8 mL/min (90-130); Glucose 79 mg/dL (65-115); Osmolality Calculated 279 mOsm/kg (285-295); Sodium 135 mmol/L (136-145); Total Bilirubin 0.2 mg/dL (0.15-1.2); Total Protein 6.7 g/dL (6.6-8.7)
[2022-07-07 20:04] VITALS: BP 117/78; PULSE 88; RESP 14; O2SAT 100
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
[2022-07-07 20:44] LABS: Add Urine Microscopic? YES; Bilirubin Urine Neg (Negative); Blood Urine Neg (Negative); Glucose Urine UA Norm (Normal); Ketones Urine Negative (Negative); Leukocyte Esterase Urine 2+ (Negative); Nitrate Urine Negative (Negative); Protein Urine Neg (Negative); Urine Appearance Turbid (CLEAR); Urine Color Yellow (Yellow); Urobilinogen Urine Neg (Negative); pH Urine 5 (5-7)
[2022-07-07 20:45] LABS: RBC Urine 0-4 /hpf (0-2)
[2022-07-07 20:46] LABS: Mucus Urine TRACE /hpf
[2022-07-07 20:47] LABS: Bacteria Urine 3+ /hpf; Squamous Epithelial Cell Urine 15-25 /hpf (0-5); WBC Urine 80-100 /hpf (0-5)
[2022-07-07 20:48] LABS: Add Urine Culture? Yes
== END 2022-07-07 20:18 | disposition home or self-care (01) ==
PROVIDERS: Emergency Provider Physician Assistant; PCP Family Medicine
DX: O26.851 Spotting complicating pregnancy, first trimester (principal); Z3A.13 13 weeks gestation of pregnancy; O23.41 Unspecified infection of urinary tract in pregnancy, first trimester; N39.0 Urinary tract infection, site not specified; O99.331 Smoking (tobacco) complicating pregnancy, first trimester; F17.210 Nicotine dependence, cigarettes, uncomplicated
CPT/HCPCS: 36415; 76815; 80053; 81001; 85025; 86900; 87086; 99284

== ENCOUNTER 2022-07-24 20:09 | Emergency (ER) | payer MEDICAID, SELFPAY ==
[2022-07-24 20:13] VITALS: BP 114/76; PULSE 93; RESP 20; TEMP 36.8; O2SAT 99
[2022-07-24 20:58] LABS: Basophils % 0.4 %; Eosinophils # 0.1 10^3/uL (0.0-0.8); Eosinophils % 1.5 %; Hematocrit 28.2 % (37.0-47.0); Hemoglobin 8.7 g/dL (11.5-15.3); Lymphocytes % 34.8 %; Mean Corpuscular HGB Conc 30.9 g/dL (30.0-36.0); Mean Corpuscular Hemoglobin 26.4 pg (28.0-34.0); Mean Corpuscular Volume 85.5 fl (81-99); Mean Platelet Volume 9.7 fL (7.4-10.4); Monocytes # 0.6 10^3/uL (0.2-0.9); Neutrophils # 4.75 10^3/uL (1.8-7.7); Neutrophils % 55.9 %; Nucleated Red Blood Cells % 0 %; Platelet Count 252 10^3/cmm (130-400); Red Cell Distribution Width 15.9 % (12.1-15.1); White Blood Count 8.5 10^3/uL (4.0-10.0)
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
[2022-07-24] MEDS: metoclopramide 5 mg/mL SDV 2 mL 10 MG IVP (21:29)
[2022-07-24] MEDS: diphenhydrAMINE 50 mg/mL SDV 1mL IVP (21:30)
[2022-07-24] MEDS: sodium chloride 0.9% 1,000 ML 999 ML IV (21:30)
[2022-07-24 21:48] LABS: Urine Appearance Clear (CLEAR); Urine Color Yellow (Yellow)
[2022-07-24 21:49] LABS: Add Urine Microscopic? YES; Bilirubin Urine Neg (Negative); Blood Urine Neg (Negative); Glucose Urine UA Norm (Normal); Ketones Urine Negative (Negative); Leukocyte Esterase Urine 1+ (Negative); Nitrate Urine Negative (Negative); Protein Urine Neg (Negative); RBC Urine 0-4 /hpf (0-2); Urobilinogen Urine Norm (Negative); pH Urine 6 (5-7)
[2022-07-24 21:52] LABS: Squamous Epithelial Cell Urine 15-25 /hpf (0-5)
[2022-07-24 21:53] LABS: Add Urine Culture? No; Bacteria Urine 2+ /hpf
[2022-07-24 22:21] VITALS: BP 114/76; PULSE 93; RESP 20; TEMP 36.8; O2SAT 99
== END 2022-07-24 22:27 | disposition home or self-care (01) ==
PROVIDERS: Emergency Provider Emergency Medicine; PCP Family Medicine
DX: O23.12 Infections of bladder in pregnancy, second trimester (principal); O26.892 Other specified pregnancy related conditions, second trimester; R10.30 Lower abdominal pain, unspecified; O99.332 Smoking (tobacco) complicating pregnancy, second trimester; F17.210 Nicotine dependence, cigarettes, uncomplicated; Z3A.15 15 weeks gestation of pregnancy
CPT/HCPCS: 81001; 85025; 96361; 96374; 96375; 99284; J1200; J2765; J7030

== ENCOUNTER 2022-08-06 10:55 | Emergency (ER) | payer MEDICAID, SELFPAY ==
[2022-08-06 11:21] VITALS: BP 108/66; PULSE 82; RESP 14; TEMP 36.6; O2SAT 97; BMI 28.6
--- NOTE | 2022-08-06 11:33 | USR_ITS ---
PROCEDURE INFORMATION: Exam: US , Limited Exam date and time: 08/06/2022 12:09 PM Age: 22 years old Clinical indication: Lmp or gestational age (in weeks): 17w5d; Other: Decreased movement; LABS AND CLINICAL REPORTS: Last menstrual period start date: 04/04/2022 Gestational age (Established): 17 w 5 d Estimated due date (Established): 01/09/2023 TECHNIQUE: Imaging protocol: Real-time ultrasound of the maternal uterus with image documentation. Exam focused on the clinical indication. COMPARISON: US OB limited [id number] 07/07/2022 4:41 PM FINDINGS: Gestation: Single live intrauterine gestation. heart rate: 141 bpm. presentation: Transverse. Placenta: Posterior and right grade 0 placenta without previa. BIOMETRY: Gestational age (AUA): 17 w 5 d Estimated weight: 208 g Biparietal diameter (BPD): 4 cm. EGA (BPD) is 18 w 0 d Head circumference (HC): 13.8 cm. EGA (HC) is 17 w 1 d Abdominal circumference (AC): 11.8 cm. EGA (AC) is 17 w 4 d Femur length (FL): 2.6 cm. EGA (FL) is 18 w 0 d Cephalic Index (CI): 95.3 % HC/AC: 1.16 FL/HC: 19.3 % FL/AC: 22.4 % MATERNAL: Cervix: Unremarkable closed cervix measuring 5.1 cm in length. Other findings: Normal anatomy visualized includes spine, three-vessel cord and cord insertion, four-chamber heart, kidneys, bladder and stomach. US/US OB >= 14 weeks fetus [id number] IMPRESSION: Single live intrauterine gestation with estimated age of 17 weeks 5 days, and weight of 208 g.
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
[2022-08-06 13:26] LABS: Add Urine Culture? No; Add Urine Microscopic? YES; Bacteria Urine 4+ /hpf; Bilirubin Urine Neg (Negative); Blood Urine Neg (Negative); Glucose Urine UA Norm (Normal); Ketones Urine 1+ (Negative); Leukocyte Esterase Urine 2+ (Negative); Nitrate Urine Negative (Negative); Protein Urine Neg (Negative); RBC Urine 0-4 /hpf (0-2); Squamous Epithelial Cell Urine 25-40 /hpf (0-5); Urine Appearance Hazy (CLEAR); Urine Color Yellow (Yellow); Urobilinogen Urine Norm (Negative); pH Urine 6 (5-7)
[2022-08-06 13:56] VITALS: BP 124/79; PULSE 81; RESP 16; TEMP 36.7; O2SAT 99
== END 2022-08-06 13:56 | disposition home or self-care (01) ==
PROVIDERS: Emergency Provider Emergency Medicine; PCP Family Medicine
DX: O99.830 Other infection carrier state complicating pregnancy (principal); Z22.39 Carrier of other specified bacterial diseases; R82.71 Bacteriuria; Z3A.17 17 weeks gestation of pregnancy; O99.332 Smoking (tobacco) complicating pregnancy, second trimester; F17.210 Nicotine dependence, cigarettes, uncomplicated
CPT/HCPCS: 76805; 81001; 99284

== ENCOUNTER 2022-12-05 13:05 | Outpatient (CLI) | payer MEDICAID, SELFPAY ==
[2022-12-05 13:20] VITALS: BMI 30.5
[2022-12-05 13:21] VITALS: BP 123/81; PULSE 107; RESP 16; TEMP 36.6
[2022-12-05 13:23] VITALS: BP 131/84; PULSE 88
[2022-12-05 13:39] LABS: Urine Appearance Cloudy (CLEAR); Urine Color Yellow (Yellow); pH Urine 6.5 (5-7)
[2022-12-05 13:40] LABS: Bilirubin Urine Neg (Negative); Blood Urine Neg (Negative); Glucose Urine UA Norm (Normal); Ketones Urine 1+ (Negative); Leukocyte Esterase Urine 1+ (Negative); Nitrate Urine Negative (Negative); Protein Urine Neg (Negative); Urobilinogen Urine 1 mg/dL (Negative)
[2022-12-05 13:52] LABS: Add Urine Culture? Yes; Bacteria Urine 3+ /hpf; Mucus Urine 4+ /hpf; RBC Urine 0-4 /hpf (0-2)
[2022-12-05 14:02] VITALS: BP 119/84; PULSE 95
[2022-12-05 14:22] VITALS: BP 122/86; PULSE 102
[2022-12-05 14:41] VITALS: BP 126/81; PULSE 85
[2022-12-05 14:59] VITALS: BP 126/81; PULSE 85
== END 2022-12-05 14:50 | disposition home or self-care (01) ==
LOC: OPOB 13:09 → OBGYN 13:12
PROVIDERS: PCP Family Medicine; Visit Provider Family Medicine
DX: O47.9 False labor, unspecified (principal); Z3A.00 Weeks of gestation of pregnancy not specified
CPT/HCPCS: 59025; 81001; 87086; 99211

== ENCOUNTER 2022-12-07 17:47 | Emergency (ER) | payer MEDICAID, SELFPAY ==
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
[2022-12-07 18:13] VITALS: BP 138/90; PULSE 106; RESP 18; TEMP 37.1; O2SAT 99; BMI 29.8
[2022-12-07 18:28] VITALS: BP 138/90; RESP 18; O2SAT 97
[2022-12-07 18:32] LABS: Basophils % 0.3 %; Eosinophils % 0.1 %; Hematocrit 35.8 % (37.0-47.0); Hemoglobin 10.7 g/dL (11.5-15.3); Lymphocytes # 1.4 10^3/uL (0.8-4.8); Mean Corpuscular HGB Conc 29.9 g/dL (30.0-36.0); Mean Corpuscular Hemoglobin 24.5 pg (28.0-34.0); Mean Corpuscular Volume 82.1 fl (81-99); Mean Platelet Volume 10.9 fL (7.4-10.4); Monocytes # 0.6 10^3/uL (0.2-0.9); Monocytes % 8.3 %; Neutrophils # 4.85 10^3/uL (1.8-7.7); Neutrophils % 70.7 %; Nucleated Red Blood Cells % 0 %; Platelet Count 265 10^3/cmm (130-400); Red Blood Count 4.36 10^6/uL (4.1-5.3); Red Cell Distribution Width 21.1 % (12.1-15.1); White Blood Count 6.9 10^3/uL (4.0-10.0)
[2022-12-07 18:51] LABS: Anion Gap 20.9 (5-19); Blood Urea Nitrogen 16 mg/dL (6-20); Calcium 8.7 mg/dL (8.5-10.5); Carbon Dioxide 18 mmol/L (22-29); Chloride 100 mmol/L (98-107); Glomerular Filtration Rate 102.8 mL/min (90-130); Glucose 74 mg/dL (65-115); Osmolality Calculated 280 mOsm/kg (285-295); Potassium 3.9 mmol/L (3.5-5.1); Sodium 135 mmol/L (136-145)
[2022-12-07 18:52] LABS: Lactic Sepsis W/Reflex 1.4 mmol/L (0.5-2.2)
--- NOTE | 2022-12-07 19:09 | CTR_ITS ---
PROCEDURE INFORMATION: Exam: CT Abdomen And Pelvis With Contrast Exam date and time: 12/07/2022 7:28 PM Age: 22 years old Clinical indication: Other: Small bowel obstruction; Additional info: Possible bowel obstruction TECHNIQUE: Imaging protocol: Computed tomography of the abdomen and pelvis with contrast. Axial, coronal and sagittal reformatted images were created and reviewed. Radiation optimization: All CT scans at this facility use at least one of these dose optimization techniques: automated exposure control; mA and/or kV adjustment per patient size (includes targeted exams where dose is matched to clinical indication); or iterative reconstruction. Contrast material: OMNI 350; Contrast volume: 100 ml; Contrast route: INTRAVENOUS (IV); REPORTING DATA: Count of CT and Cardiac NM exams in prior 12 months: This patient has received 0 known CTs and 0 known cardiac nuclear medicine studies in the 12 months prior to the current study. COMPARISON: CR XR KUB [id number] 12/07/2022 12:49 PM RADIATION DOSE METRICS: Total DLP (mGy-cm): 754 FINDINGS: Liver: Unremarkable. Gallbladder and bile ducts: No radiodense gallstones. No biliary ductal dilatation. Pancreas: Unremarkable. Spleen: Unremarkable. Adrenal glands: Normal. No mass. Kidneys and ureters: No mass. No radiodense calculi. No hydronephrosis. Stomach and bowel: Marked distention of the cecum in the right upper quadrant with twisting/kinking of the distal/terminal ileum and associated mesenteric distortion. Mildly dilated loops of small bowel in the right mid abdomen. Appendix: Not identified with certainty. Intraperitoneal space: No free fluid. No organized fluid collection. No free air. Vasculature: Unremarkable. No aneurysm. Lymph nodes: Small mesenteric lymph nodes, likely reactive. No pathologically enlarged lymph nodes. Urinary bladder: Unremarkable as visualized. Reproductive: Gravid uterus. Bones/joints: No acute osseous abnormality. Soft tissues: Unremarkable. CT/CT abdomen pelvis w con* [id number] IMPRESSION: 1. Findings consistent with cecal volvulus and/or internal hernia with resultant bowel obstruction, as described above. 2. Additional findings, as above.
[2022-12-07 19:11] VITALS: BP 136/87; PULSE 104; RESP 16; O2SAT 100
[2022-12-07] MEDS: iohexol 350 mg/mL 500 mL Btl (per mL) IV (19:38)
[2022-12-07 20:35] VITALS: BP 117/86; PULSE 101; RESP 16; O2SAT 100
[2022-12-07 21:17] VITALS: BP 136/85; PULSE 89; RESP 16; O2SAT 100
--- NOTE | 2022-12-07 21:50 | PC.NURSE ---
Reactive NST. FHT baseline 135bpm, with 15x15 accelerations present, decelerations absent. Irregular contractions present, palpating mild. Patient does not feel pain with contractions at this time. Strip printed off, patient label placed, and handed to Vivien.
== END 2022-12-07 22:02 | disposition short-term general hospital (02) ==
PROVIDERS: Emergency Provider Emergency Medicine; PCP Family Medicine
DX: O99.613 Diseases of the digestive system complicating pregnancy, third trimester (principal); K56.2 Volvulus; K59.00 Constipation, unspecified; O99.013 Anemia complicating pregnancy, third trimester; Z3A.35 35 weeks gestation of pregnancy
CPT/HCPCS: 74177; 80048; 83605; 85025; 99285; Q9967

== ENCOUNTER → 2023-03-20 17:45 | Outpatient (BNVA) | payer MEDICAID, SELFPAY | PROVIDERS: PCP Family Medicine; Visit Provider Emergency Medicine | DX: J06.9 Acute upper respiratory infection, unspecified (principal); Z20.822 Contact with and (suspected) exposure to COVID-19 | CPT/HCPCS: 87426 ==

== ENCOUNTER 2023-04-06 19:46 | Emergency (ER) | payer MEDICAID, SELFPAY ==
[2023-04-06 19:50] VITALS: BP 150/90; PULSE 89; RESP 17; TEMP 36.6; O2SAT 99; BMI 27.1
--- NOTE | 2023-04-06 21:07 | CTR_ITS ---
PROCEDURE INFORMATION: Exam: CT Abdomen And Pelvis With Contrast Exam date and time: 04/06/2023 9:26 PM Age: 23 years old Clinical indication: Other: No bm x 3 days. Nausea. Prior surgery; Surgery date: 1-6 months; Surgery type: Bowel resection. Appy. Patient HX: C/O no bm x 3 days. Recent bowel resection for sbo. History of intestinal malrotation. ; Additional info: Abd pain HX bowel obstruction TECHNIQUE: Imaging protocol: Computed tomography of the abdomen and pelvis with contrast. Radiation optimization: All CT scans at this facility use at least one of these dose optimization techniques: automated exposure control; mA and/or kV adjustment per patient size (includes targeted exams where dose is matched to clinical indication); or iterative reconstruction. Contrast material: OMNI 350; Contrast volume: 100 ml; Contrast route: INTRAVENOUS (IV); REPORTING DATA: Count of CT and Cardiac NM exams in prior 12 months: This patient has received [address] and 0 known cardiac nuclear medicine studies in the 12 months prior to the current study. COMPARISON: CT abdomen pelvis w con* [id number] 12/07/2022 7:28 PM RADIATION DOSE METRICS: Total DLP (mGy-cm): 476.69 FINDINGS: Liver: Normal. No mass. Gallbladder and bile ducts: Normal. No calcified stones. No ductal dilation. Pancreas: Normal. No ductal dilation. Spleen: Normal. No splenomegaly. Adrenal glands: Normal. No mass. Kidneys and ureters: Normal. No hydronephrosis. Stomach and bowel: Normal variant intestinal non rotation is noted. Prior surgical changes are observed in the cecum/ascending colon. No intestinal obstruction. No significant colonic fecal load. Appendix: Resected. Intraperitoneal space: Unremarkable. No free air. No significant fluid collection. Vasculature: Unremarkable. No abdominal aortic aneurysm. Lymph nodes: Unremarkable. No enlarged lymph nodes. Urinary bladder: Unremarkable as visualized. Reproductive: Unremarkable as visualized. Bones/joints: Unremarkable. No acute fracture. Soft tissues: Mild scarring is observed in the anterior abdominal wall.. CT/CT abdomen pelvis w con* [id number] IMPRESSION: No acute abnormality is seen in the abdomen or pelvis.
[2023-04-06 21:13] VITALS: BP 122/91; PULSE 72; RESP 16; O2SAT 100
[2023-04-06 21:13] LABS: Basophils % 0.5 %; Eosinophils # 0.1 10^3/uL (0.0-0.8); Eosinophils % 1.4 %; Hematocrit 39.2 % (36-47); Lymphocytes # 2.7 10^3/uL (0.8-4.8); Lymphocytes % 47.2 %; Mean Corpuscular HGB Conc 30.6 g/dL (30-55); Mean Corpuscular Hemoglobin 24.8 pg (27-33); Mean Platelet Volume 10.2 fL (7.4-10.4); Monocytes # 0.4 10^3/uL (0.2-0.9); Monocytes % 7.6 %; Neutrophils % 43.1 %; Nucleated Red Blood Cells % 0 %; Platelet Count 246 10^3/cmm (157-399); Red Blood Count 4.84 10^6/uL (3.85-5.65); Red Cell Distribution Width 17.6 % (12.1-15.1); White Blood Count 5.79 10^3/uL (3.29-11.43)
[2023-04-06 21:23] LABS: HCG, Serum Qual Negative (Negative)
[2023-04-06 21:28] LABS: Alanine Aminotransferase 34 U/L (0-33); Albumin Level 4.4 g/dL (3.5-5.2); Alkaline Phosphatase 69 U/L (35-105); Aspartate Amino Transferase 23 U/L (0-32); Blood Urea Nitrogen 11 mg/dL (6-20); C Reactive Protein 5.2 mg/L (0.0-4.9); Calcium 9.3 mg/dL (8.5-10.5); Carbon Dioxide 23 mmol/L (22-29); Chloride 104 mmol/L (98-107); Globulin 3.5 g/dL (1.3-4.6); Glomerular Filtration Rate 87.4 mL/min (90-130); Glucose 103 mg/dL (65-115); Lipase 26 U/L (13-60); Osmolality Calculated 286 mOsm/kg (285-295); Sodium 138 mmol/L (136-145); Total Bilirubin 0.4 mg/dL (0.15-1.2); Total Protein 7.9 g/dL (6.6-8.7)
[2023-04-06] MEDS: iohexol 350 mg/mL 500 mL Btl (per mL) IV (21:30)
[2023-04-06 22:02] LABS: Add Urine Microscopic? YES; Amorphous Sediment Urine 1+ /hpf; Bacteria Urine 1+ /hpf; Bilirubin Urine Neg (Negative); Blood Urine Neg (Negative); Glucose Urine UA Norm (Normal); Ketones Urine Negative (Negative); Leukocyte Esterase Urine 1+ (Negative); Mucus Urine TRACE /hpf; Nitrate Urine Negative (Negative); Protein Urine Neg (Negative); RBC Urine RARE /hpf (0-2); Urine Appearance Clear (CLEAR); Urine Color Yellow (Yellow); Urobilinogen Urine Neg (Negative); pH Urine 6 (5-7)
[2023-04-06 22:03] LABS: Add Urine Culture? No
[2023-04-06 23:08] VITALS: BP 114/95
[2023-04-06] MEDS: magnesium citrate Btl 296 mL PO (23:32)
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
== END 2023-04-06 23:36 | disposition home or self-care (01) ==
PROVIDERS: Emergency Provider Emergency Medicine; PCP Family Medicine
DX: K56.0 Paralytic ileus (principal); Z72.0 Tobacco use
CPT/HCPCS: 36415; 74177; 80053; 81001; 83690; 84703; 85025; 86140; 99285; Q9967

== ENCOUNTER → 2023-06-15 18:20 | Outpatient (BNVA) | payer MEDICAID, SELFPAY | PROVIDERS: PCP Family Medicine; Visit Provider Emergency Medicine | DX: J06.9 Acute upper respiratory infection, unspecified (principal) | CPT/HCPCS: 87400 ==

== ENCOUNTER 2023-10-02 00:11 | Emergency (ER) | payer MEDICAID, SELFPAY ==
[2023-10-02 00:34] VITALS: BP 121/86; PULSE 87; RESP 18; TEMP 36.7; O2SAT 97; BMI 31.2
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
[2023-10-02 01:01] LABS: Basophils % 0.5 %; Eosinophils # 0.1 10^3/uL (0.0-0.8); Eosinophils % 1.3 %; Hematocrit 40.8 % (36-47); Lymphocytes % 54.7 %; Mean Corpuscular HGB Conc 31.9 g/dL (30-55); Mean Corpuscular Hemoglobin 27.1 pg (27-33); Mean Corpuscular Volume 85.2 fl (85-98); Mean Platelet Volume 10.4 fL (7.4-10.4); Monocytes # 0.4 10^3/uL (0.2-0.9); Monocytes % 7.1 %; Neutrophils # 1.99 10^3/uL (1.8-7.7); Neutrophils % 36.2 %; Nucleated Red Blood Cells % 0 %; Platelet Count 229 10^3/cmm (157-399); Red Blood Count 4.79 10^6/uL (3.85-5.65); Red Cell Distribution Width 15.9 % (12.1-15.1)
[2023-10-02 01:21] LABS: Alanine Aminotransferase 17 U/L (0-33); Albumin Level 4.2 g/dL (3.5-5.2); Alkaline Phosphatase 75 U/L (35-105); Anion Gap 14.3 (5-19); Aspartate Amino Transferase 16 U/L (0-32); Blood Urea Nitrogen 10 mg/dL (6-20); Calcium 9.3 mg/dL (8.5-10.5); Carbon Dioxide 23 mmol/L (22-29); Chloride 103 mmol/L (98-107); Creatinine Clr Calc Pharmacy 89.3891; Globulin 3.4 g/dL (1.3-4.6); Glomerular Filtration Rate 67.6 mL/min (90-130); Glucose 98 mg/dL (65-115); Lipase 26 U/L (13-60); Osmolality Calculated 283 mOsm/kg (285-295); Potassium 3.3 mmol/L (3.5-5.1); Sodium 137 mmol/L (136-145); Total Bilirubin 0.2 mg/dL (0.15-1.2); Total Protein 7.6 g/dL (6.6-8.7)
[2023-10-02 01:42] VITALS: BP 121/86; PULSE 87; RESP 18; TEMP 36.7; O2SAT 97
== END 2023-10-02 01:43 | disposition home or self-care (01) ==
PROVIDERS: Emergency Provider Emergency Medicine; PCP Family Medicine
DX: K52.9 Noninfective gastroenteritis and colitis, unspecified (principal); E87.6 Hypokalemia; Z72.0 Tobacco use
CPT/HCPCS: 80053; 83690; 83735; 85025; 99283

== ENCOUNTER 2024-04-16 22:25 | Emergency (ER) | payer MEDICAID, SELFPAY ==
[2024-04-16 22:29] VITALS: BP 160/87; PULSE 86; RESP 16; TEMP 36.6; O2SAT 99; BMI 32.5
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
[2024-04-16 23:09] LABS: Bilirubin Urine Negative (Negative); Blood Urine Negative (Negative); Glucose Urine UA Negative (Normal); Ketones Urine Trace (Negative); Leukocyte Esterase Urine 1+ (Negative); Nitrate Urine Negative (Negative); Protein Urine Negative (Negative); Specific Gravity, Urine 1.025 (1.005-1.030); Urine Appearance Clear (CLEAR); Urine Color Yellow (Yellow); pH Urine 6.5 (5-7)
[2024-04-16 23:14] LABS: Bacteria Urine 1+ /hpf; Hyaline Casts Urine 1.21 /lpf; RBC Urine 0-2 /hpf (0-2)
[2024-04-16 23:17] VITALS: BP 165/84; PULSE 80; RESP 16; O2SAT 100
[2024-04-16 23:30] VITALS: BP 154/77; PULSE 76; RESP 15; O2SAT 97
[2024-04-16 23:58] LABS: Basophils % 0.4 %; Eosinophils # 0.1 10^3/uL (0.0-0.8); Eosinophils % 1.4 %; Lymphocytes # 3.1 10^3/uL (0.8-4.8); Lymphocytes % 44.2 %; Mean Corpuscular HGB Conc 31.9 g/dL (30-55); Mean Corpuscular Hemoglobin 28.3 pg (27-33); Mean Corpuscular Volume 88.8 fl (85-98); Mean Platelet Volume 10.8 fL (7.4-10.4); Monocytes # 0.6 10^3/uL (0.2-0.9); Monocytes % 8.8 %; Neutrophils # 3.17 10^3/uL (1.8-7.7); Neutrophils % 45.1 %; Nucleated Red Blood Cells % 0 %; Platelet Count 239 10^3/cmm (157-399); Red Blood Count 4.73 10^6/uL (3.85-5.65); Red Cell Distribution Width 13.1 % (12.1-15.1); White Blood Count 7.04 10^3/uL (3.29-11.43)
[2024-04-17] VITALS: BP 149/76; RESP 16; O2SAT 99
--- NOTE | 2024-04-17 | XRR_ITS ---
PROCEDURE INFORMATION: Exam: XR Abdomen Exam date and time: 04/17/2024 12:19 AM Age: 24 years old Clinical indication: Abdominal pain; Generalized; Prior surgery; Surgery date: 6+ months; Surgery type: Intestinal malrotation ( part of bowel removed), appy TECHNIQUE: Imaging protocol: Radiologic exam of the abdomen. Views: 2 Views. Upright and supine views. COMPARISON: CT abdomen pelvis w con* [id number] 04/06/2023 9:26 PM FINDINGS: Gastrointestinal tract: Normal. No bowel dilation. Intraperitoneal space: Normal. No free air. Bones/joints: Unremarkable for age. XR/XR acute abdomen series [id number] IMPRESSION: Nonobstructive bowel gas pattern.
[2024-04-17 00:10] LABS: HCG, Serum Qual Negative (Negative)
[2024-04-17 00:11] LABS: Alanine Aminotransferase 22 U/L (0-33); Albumin Level 4.2 g/dL (3.5-5.2); Alkaline Phosphatase 66 U/L (35-105); Aspartate Amino Transferase 15 U/L (0-32); Blood Urea Nitrogen 12 mg/dL (6-20); Carbon Dioxide 25 mmol/L (22-29); Chloride 106 mmol/L (98-107); Creatinine Clr Calc Pharmacy 113.2068; Globulin 2.7 g/dL (1.3-4.6); Glomerular Filtration Rate 86.7 mL/min (90-130); Glucose 70 mg/dL (65-115); Lipase 25 U/L (13-60); Osmolality Calculated 288 mOsm/kg (285-295); Sodium 140 mmol/L (136-145); Total Bilirubin 0.2 mg/dL (0.15-1.2); Total Protein 6.9 g/dL (6.6-8.7)
[2024-04-17] MEDS: magnesium citrate Btl 296 mL PO (00:43)
[2024-04-17 00:46] VITALS: BP 149/76; PULSE 74; O2SAT 100
== END 2024-04-17 00:48 | disposition home or self-care (01) ==
PROVIDERS: Emergency Provider Emergency Medicine; PCP Family Medicine
DX: K59.00 Constipation, unspecified (principal)
CPT/HCPCS: 36415; 74022; 80053; 81001; 83690; 84703; 85025; 86140; 99284

== ENCOUNTER 2024-11-01 20:54 | Emergency (ER) | payer MEDICAID, SELFPAY ==
[2024-11-01 21:19] VITALS: BP 121/82; PULSE 80; RESP 16; TEMP 36.7; O2SAT 100; BMI 28.9
[2024-11-01 23:54] VITALS: BP 127/93
[2024-11-01 23:55] LABS: Basophils % 0.4 %; Eosinophils # 0.1 10^3/uL (0.0-0.8); Eosinophils % 0.9 %; Hematocrit 42.4 % (36-47); Lymphocytes # 3.1 10^3/uL (0.8-4.8); Lymphocytes % 40.3 %; Mean Corpuscular HGB Conc 32.3 g/dL (30-55); Mean Corpuscular Hemoglobin 29.7 pg (27-33); Mean Corpuscular Volume 91.8 fl (85-98); Mean Platelet Volume 10.8 fL (7.4-10.4); Monocytes # 0.4 10^3/uL (0.2-0.9); Monocytes % 5.5 %; Neutrophils # 3.99 10^3/uL (1.8-7.7); Neutrophils % 52.6 %; Nucleated Red Blood Cells % 0 %; Platelet Count 236 10^3/cmm (157-399); Red Blood Count 4.62 10^6/uL (3.85-5.65); Red Cell Distribution Width 14.1 % (12.1-15.1); White Blood Count 7.59 10^3/uL (3.29-11.43)
[2024-11-02] MEDS: ondansetron 2 mg/ML SDV 2 mL 4 MG IVP (00:27)
[2024-11-02 00:32] VITALS: BP 115/85; PULSE 74; O2SAT 100
[2024-11-02] MEDS: sodium chloride 0.9% 1,000 ML 999 ML IV (00:35)
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
[2024-11-02 00:55] LABS: Bilirubin Urine Negative (Negative); Blood Urine Trace (Negative); Glucose Urine UA Negative (Normal); Ketones Urine 2+ (Negative); Leukocyte Esterase Urine 2+ (Negative); Nitrate Urine Negative (Negative); Protein Urine Trace (Negative); Urine Appearance Cloudy (CLEAR); Urine Color Yellow (Yellow); pH Urine 5.5 (5-7)
[2024-11-02 01:04] LABS: Add Urine Microscopic? YES; Bacteria Urine 4+ /hpf; Hyaline Casts Urine 6.61 /lpf; RBC Urine 0-2 /hpf (0-2); Squamous Epithelial Cell Urine 21-50 /hpf (0-5); WBC Urine 51-100 /hpf (0-5)
[2024-11-02 01:08] LABS: Alanine Aminotransferase 14 U/L (0-33); Albumin Level 4.4 g/dL (3.5-5.2); Alkaline Phosphatase 60 U/L (35-105); Anion Gap 18.1 (5-19); Aspartate Amino Transferase 14 U/L (0-32); Blood Urea Nitrogen 10 mg/dL (6-20); Calcium 9.2 mg/dL (8.5-10.5); Carbon Dioxide 20 mmol/L (22-29); Chloride 104 mmol/L (98-107); Creatinine Clr Calc Pharmacy 110.6443; Globulin 3.2 g/dL (1.3-4.6); Glomerular Filtration Rate 86.7 mL/min (90-130); Glucose 76 mg/dL (65-115); Osmolality Calculated 286 mOsm/kg (285-295); Potassium 3.1 mmol/L (3.5-5.1); Sodium 139 mmol/L (136-145); Total Bilirubin 0.5 mg/dL (0.15-1.2); Total Protein 7.6 g/dL (6.6-8.7)
[2024-11-02 01:20] VITALS: BP 109/76; PULSE 69; O2SAT 100
[2024-11-02 02:02] LABS: HCG, Serum Qual Positive (Negative)
[2024-11-02 02:10] LABS: C Reactive Protein 4.2 mg/L (0.0-4.9); Lipase 66 U/L (13-60)
[2024-11-02] MEDS: cefTRIAXone 1,000 mg SDV 1000 MG IVP (02:12)
[2024-11-02] MEDS: potassium chloride ER 20 mEq Tablet 40 MEQ PO (02:15)
[2024-11-02 02:22] VITALS: BP 145/108; PULSE 95; O2SAT 98
== END 2024-11-02 02:25 | disposition home or self-care (01) ==
PROVIDERS: Emergency Provider Emergency Medicine; PCP Family Medicine
DX: O23.40 Unspecified infection of urinary tract in pregnancy, unspecified trimester (principal); N39.0 Urinary tract infection, site not specified; Z72.0 Tobacco use
CPT/HCPCS: 36415; 80053; 81001; 83690; 84703; 85025; 86140; 96374; 96375; 99284; J0696; J1885; J2405; J7030; J9999

== ENCOUNTER 2024-11-08 13:48 | Emergency (ER) | payer MEDICAID, SELFPAY ==
--- NOTE | 2024-11-08 13:49 | USR_ITS ---
PROCEDURE INFORMATION: Exam: US First Trimester, Transabdominal and US , Transvaginal Exam date and time: 11/08/2024 3:31 PM Age: 24 years old Clinical indication: complicated by abdominal or pelvic pain; Lower; First trimester (<14 weeks 0 days); Gestational age or lmp: Patient unsure of lmp dates. Gs 5w2d; ; Prior surgery; Surgery date: 6+ months; Surgery type: Patient has had a c section; Additional info: Abd pain LABS AND CLINICAL REPORTS: Last menstrual period start date: 10/02/2024 Gestational age (Established): 5 w 2 d Estimated due date (Established): 07/09/2025 TECHNIQUE: Imaging protocol: Real-time transabdominal obstetrical ultrasound of the maternal pelvis and a first trimester , less than 14 weeks 0 days, with image documentation. Transvaginal imaging was used for better evaluation of the fetus, adnexa, and/or cervix. COMPARISON: US OB >= 14 weeks fetus [id number] 08/23/2022 12:35 PM FINDINGS: GESTATION: Gestation: Single intrauterine gestational sac. No yolk sac/ pole seen at this time. Extra-embryonic membranes/Placenta: Unremarkable. No subchorionic bleed. Amniotic/Chorionic fluid: Amniotic and extra-amniotic fluid are normal for gestational age. BIOMETRY: Mean sac diameter: 0.64 cm. EGA (MSD) is 5 w 2 d MATERNAL: Uterus: Intrauterine gestational sac at the fundus. Suspected isoechoic intramural uterine fibroid at the fundus measuring 3.7 x 2.6 x 3.1 cm. Cervix: Cervical length measures 3.5 cm. Right ovary/adnexa: Right ovary measures 1.8 x 1.6 x 2.5 cm. No ovarian mass. Preserved ovarian vascular flow. Left ovary/adnexa: Left ovary measures 2.2 x 2.9 x 2.8 cm. Suspected corpus luteum in the left ovary. Preserved ovarian vascular flow. Intraperitoneal space: Trace free fluid in the pelvis. US/US OB <=14 wk fetus w transvag IMPRESSION: 1. Intrauterine gestational sac. No pole seen at this time which may reflect early gestational age. Consider serial beta hCG and/or follow-up ultrasound to ensure viability. 2. Suspected uterine fibroid at the fundus measuring up to nearly 4 cm in size.
[2024-11-08 13:51] VITALS: BP 121/74; PULSE 77; RESP 16; TEMP 36.5; O2SAT 100; BMI 28.9
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
[2024-11-08 14:50] LABS: Bilirubin Urine Negative (Negative); Blood Urine Negative (Negative); Glucose Urine UA Negative (Normal); Ketones Urine 1+ (Negative); Leukocyte Esterase Urine Trace (Negative); Nitrate Urine Negative (Negative); Protein Urine Negative (Negative); Specific Gravity, Urine 1.015 (1.005-1.030); Urine Appearance Clear (CLEAR); Urine Color Yellow (Yellow); pH Urine 5.5 (5-7)
[2024-11-08 14:55] LABS: Add Urine Microscopic? YES; Bacteria Urine None Seen /hpf; RBC Urine 0-2 /hpf (0-2)
[2024-11-08 15:01] LABS: Basophils % 0.5 %; Eosinophils % 0.7 %; Hematocrit 39.9 % (36-47); Lymphocytes # 1.8 10^3/uL (0.8-4.8); Lymphocytes % 30.7 %; Mean Corpuscular HGB Conc 32.8 g/dL (30-55); Mean Corpuscular Hemoglobin 29.3 pg (27-33); Mean Corpuscular Volume 89.3 fl (85-98); Mean Platelet Volume 11.1 fL (7.4-10.4); Monocytes # 0.4 10^3/uL (0.2-0.9); Neutrophils # 3.54 10^3/uL (1.8-7.7); Neutrophils % 60.8 %; Nucleated Red Blood Cells % 0 %; Platelet Count 226 10^3/cmm (157-399); Red Blood Count 4.47 10^6/uL (3.85-5.65); Red Cell Distribution Width 14.2 % (12.1-15.1); White Blood Count 5.83 10^3/uL (3.29-11.43)
[2024-11-08 15:29] LABS: Alanine Aminotransferase 67 U/L (0-33); Albumin Level 4.1 g/dL (3.5-5.2); Alkaline Phosphatase 57 U/L (35-105); Aspartate Amino Transferase 30 U/L (0-32); Blood Urea Nitrogen 9 mg/dL (6-20); Calcium 8.9 mg/dL (8.5-10.5); Carbon Dioxide 20 mmol/L (22-29); Chloride 103 mmol/L (98-107); Creatinine Clr Calc Pharmacy 147.5258; Globulin 3.2 g/dL (1.3-4.6); Glomerular Filtration Rate 120.8 mL/min (90-130); Glucose 84 mg/dL (65-115); Osmolality Calculated 278 mOsm/kg (285-295); Sodium 135 mmol/L (136-145); Total Bilirubin 0.3 mg/dL (0.15-1.2); Total Protein 7.3 g/dL (6.6-8.7)
[2024-11-08 16:13] VITALS: BP 124/71; PULSE 80; O2SAT 97
== END 2024-11-08 16:14 | disposition home or self-care (01) ==
PROVIDERS: Emergency Provider Emergency Medicine; PCP Family Medicine
DX: O26.891 Other specified pregnancy related conditions, first trimester (principal); Z79.82 Long term (current) use of aspirin; Z3A.01 Less than 8 weeks gestation of pregnancy
CPT/HCPCS: 36415; 76801; 76817; 80053; 81001; 84702; 85025; 99284

== ENCOUNTER 2024-11-19 19:14 | Emergency (ER) | payer MEDICAID, SELFPAY ==
[2024-11-19 19:17] VITALS: BP 113/73; PULSE 83; RESP 17; TEMP 36.7; O2SAT 98; BMI 26.8
--- NOTE | 2024-11-19 19:17 | USR_ITS ---
PROCEDURE INFORMATION: Exam: US First Trimester, Transabdominal and US , Transvaginal Exam date and time: 11/19/2024 7:44 PM Age: 24 years old Clinical indication: complicated by abdominal or pelvic pain; Other: Generalized pelvic cramping, no vaginal bleeding; Gestational age or lmp: 6w 6d by lmp 6w 6d by crl; ; Prior surgery; Surgery date: 6+ months; Surgery type: Csections x 2; Additional info: Threatened miscarriage LABS AND CLINICAL REPORTS: Choriogonadotropin in serum (Serum HCG): 340124 mIU/mL Last menstrual period start date: 07/09/2024 Gestational age (Established): 6 w 6 d Estimated due date (Established): 07/09/2025 TECHNIQUE: Imaging protocol: Real-time transabdominal obstetrical ultrasound of the maternal pelvis and a first trimester , less than 14 weeks 0 days, with image documentation. Transvaginal imaging was used for better evaluation of the fetus, adnexa, and/or cervix. COMPARISON: US OB <=14 wk fetus w transvag 11/08/2024 3:31 PM FINDINGS: GESTATION: Gestation: Single intrauterine gestation is visualized. pole is visualized. Yolk sac is visualized. Embryo/ cardiac activity (BPM): 127 bpm Extra-embryonic membranes/Placenta: Unremarkable. No subchorionic bleed. Amniotic/Chorionic fluid: Amniotic and extra-amniotic fluid are normal for gestational age. BIOMETRY: Gestational age (AUA): 6 w 1 d by CRL of 0.39 cm. Estimated due date (AUA): 07/14/2025 MATERNAL: Uterus: Uterus measures 8.14 cm x 6.81 cm x 5.07 cm. Cervix: Unremarkable as visualized. Right ovary/adnexa: Right ovary measures 2.3 cm x 1.6 cm x 1 cm. Right ovarian volume is 2 mL. Right ovarian flow is seen with PSV of 15.7 cm/s and RI of 0.45. Left ovary/adnexa: Left ovary measures 3.3 cm x 2.5 cm x 3.1 cm. Left ovarian volume is 13 mL. Left ovarian flow is seen with PSV 18.6 cm/s and RI 0.30. 1.3 cm left ovarian cyst, likely corpus luteal cyst. Intraperitoneal space: No intraperitoneal free fluid. US/US OB <= 14 weeks fetus [id number] IMPRESSION: Single intrauterine gestation of 6 weeks 1 day by CRL with LOBITO 07/14/2025, with embryo/ cardiac activity of 127 bpm. No acute findings otherwise.
[2024-11-19 20:14] LABS: Alanine Aminotransferase 64 U/L (0-33); Alkaline Phosphatase 57 U/L (35-105); Anion Gap 17.4 (5-19); Aspartate Amino Transferase 32 U/L (0-32); Blood Urea Nitrogen 9 mg/dL (6-20); Carbon Dioxide 20 mmol/L (22-29); Chloride 105 mmol/L (98-107); Creatinine Clr Calc Pharmacy 121.9156; Glomerular Filtration Rate 101.1 mL/min (90-130); Glucose 107 mg/dL (65-115); Osmolality Calculated 287 mOsm/kg (285-295); Potassium 3.4 mmol/L (3.5-5.1); Sodium 139 mmol/L (136-145); Total Bilirubin 0.3 mg/dL (0.15-1.2)
[2024-11-19 20:31] VITALS: BP 123/87; O2SAT 94
[2024-11-19 20:32] LABS: Bilirubin Urine Negative (Negative); Blood Urine Negative (Negative); Glucose Urine UA Negative (Normal); Ketones Urine 1+ (Negative); Leukocyte Esterase Urine 1+ (Negative); Nitrate Urine Negative (Negative); Protein Urine Trace (Negative); Urine Appearance Cloudy (CLEAR); Urine Color Dark Yellow (Yellow); pH Urine 5.5 (5-7)
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
[2024-11-19 20:37] LABS: Add Urine Microscopic? YES; Bacteria Urine 1+ /hpf; Hyaline Casts Urine 2.46 /lpf; RBC Urine 0-2 /hpf (0-2); WBC Urine 21-50 /hpf (0-5)
[2024-11-19 20:40] LABS: Specific Gravity, Urine 1.035 (1.005-1.030)
[2024-11-19 21:35] VITALS: BP 121/80; PULSE 76; RESP 16; O2SAT 90
== END 2024-11-19 21:36 | disposition home or self-care (01) ==
PROVIDERS: Emergency Medicine; Emergency Provider Nurse Practitioner; PCP Family Medicine
DX: O26.891 Other specified pregnancy related conditions, first trimester (principal); Z3A.01 Less than 8 weeks gestation of pregnancy; O46.91 Antepartum hemorrhage, unspecified, first trimester; Z72.0 Tobacco use; R10.9 Unspecified abdominal pain
CPT/HCPCS: 36415; 76801; 80053; 81001; 84702; 99284

== ENCOUNTER 2024-12-11 16:17 | Emergency (ER) | payer MEDICAID, SELFPAY ==
[2024-12-11 16:33] VITALS: BP 112/74; PULSE 95; RESP 18; TEMP 36.6; O2SAT 99; BMI 26.4
--- NOTE | 2024-12-11 18:25 | USR_ITS ---
PROCEDURE INFORMATION: Exam: US First Trimester, Transabdominal and US , Transvaginal Exam date and time: 12/11/2024 7:14 PM Age: 24 years old Clinical indication: Lmp or gestational age (in weeks): 9w 2d by reported lmp; Antepartum complications; Other: Diffuse abdominal pain, no vag bleed; complicated by abdominal or pelvic pain; Generalized abdominal pain. LABS AND CLINICAL REPORTS: Choriogonadotropin in serum (Serum HCG): 987351 mIU/mL Last menstrual period start date: 10/07/2024 Gestational age (Established): 9 w 2 d Estimated due date (Established): 07/14/2025 TECHNIQUE: Imaging protocol: Real-time transabdominal obstetrical ultrasound of the maternal pelvis and a first trimester , less than 14 weeks 0 days, with image documentation. Transvaginal imaging was used for better evaluation of the fetus, adnexa, and/or cervix. COMPARISON: US OB <= 14 weeks fetus [id number] 11/19/2024 7:44 PM FINDINGS: GESTATION: Gestation: Intrauterine gestation is visualized. pole is visualized. Yolk sac is visualized. Embryo/ cardiac activity (BPM): 169 bpm Extra-embryonic membranes/Placenta: Non-fusion of the amniotic sac is noted which can be physiologic at this gestational age. . No subchorionic bleed. Amniotic/Chorionic fluid: Amniotic and extra-amniotic fluid are normal for gestational age. BIOMETRY: Gestational age (AUA): 9 w 6 d Estimated due date (AUA): 07/10/2025 [place] rump length (CRL): 3.02 mm. EGA (CRL) is 9 w 6 d MATERNAL: Uterus: Uterus measures 8.38 cm x 9.48 cm x 6.56 cm. Cervix: Unremarkable. Endocervical canal is closed. Right ovary/adnexa: Right ovary measures 2 cm x 1.5 cm x 1.8 cm. Right ovarian volume is 2.7 mL. Color and spectral arterial flow demonstrated in the right ovary. Left ovary/adnexa: Left ovary measures 3.4 cm x 2.3 cm x 2.7 cm. Left ovarian volume is 11.6 mL. A cm incidental cyst or follicle in the left ovary. Normal color and spectral arterial flow left ovary. Intraperitoneal space: No intraperitoneal free fluid. US/US OB <= 14 weeks fetus [id number] IMPRESSION: Single live intrauterine gestation. No sonographic abnormality in the visualized pelvic viscera.
[2024-12-11 18:36] LABS: Hematocrit 38.8 % (36-47); Hemoglobin 13.00 g/dL (11.27-16.99); Mean Corpuscular HGB Conc 33.5 g/dL (30-55); Mean Corpuscular Hemoglobin 30.1 pg (27-33); Mean Corpuscular Volume 89.8 fl (85-98); Nucleated Red Blood Cells % 0 %; Platelet Count 226 10^3/cmm (157-399); Red Blood Count 4.32 10^6/uL (3.85-5.65); White Blood Count 8.25 10^3/uL (3.29-11.43)
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
[2024-12-11 19:00] VITALS: BP 103/67; PULSE 72; O2SAT 99
[2024-12-11 19:04] LABS: Glucose Urine UA Negative (Normal); Nitrate Urine Negative (Negative); Specific Gravity, Urine 1.028 (1.005-1.030)
[2024-12-11 19:16] LABS: Alanine Aminotransferase 15 U/L (0-33); Albumin Level 3.8 g/dL (3.5-5.2); Alkaline Phosphatase 57 U/L (35-105); Anion Gap 17.8 (5-19); Aspartate Amino Transferase 9 U/L (0-32); Blood Urea Nitrogen 9 mg/dL (6-20); Calcium 8.8 mg/dL (8.5-10.5); Carbon Dioxide 19 mmol/L (22-29); Chloride 104 mmol/L (98-107); Creatinine Clr Calc Pharmacy 169.7053; Globulin 3.0 g/dL (1.3-4.6); Glucose 71 mg/dL (65-115); Osmolality Calculated 281 mOsm/kg (285-295); Potassium 3.8 mmol/L (3.5-5.1); Sodium 137 mmol/L (136-145); Total Protein 6.8 g/dL (6.6-8.7)
[2024-12-11] MEDS: cefTRIAXone 1,000 MG in water for injection-sterile 2.1 ML 1 MG IM (19:54)
[2024-12-11 21:45] VITALS: BP 115/65; PULSE 62; O2SAT 100
== END 2024-12-11 19:57 | disposition home or self-care (01) ==
PROVIDERS: Emergency Provider Emergency Medicine; PCP Family Medicine
DX: O23.41 Unspecified infection of urinary tract in pregnancy, first trimester (principal); N39.0 Urinary tract infection, site not specified; Z3A.09 9 weeks gestation of pregnancy
CPT/HCPCS: 36415; 76801; 80053; 81001; 84702; 85025; 87086; 96372; 99284; J0696

== ENCOUNTER 2025-04-01 17:14 | Outpatient (CLI) | payer MEDICAID, SELFPAY ==
[2025-04-01 17:14] VITALS: BMI 27.8
[2025-04-01 17:39] VITALS: BP 120/81; PULSE 84
[2025-04-01 17:54] VITALS: BP 124/70; PULSE 90
[2025-04-01 18:10] VITALS: BP 98/56; PULSE 93
[2025-04-01 18:11] LABS: Glucose Urine UA Negative (Normal); Nitrate Urine Negative (Negative); Specific Gravity, Urine 1.018 (1.005-1.030)
[2025-04-01 18:24] VITALS: BP 93/56; PULSE 81
== END 2025-04-01 18:38 | disposition home or self-care (01) ==
LOC: OPOB 17:24 → OBGYN 17:27
PROVIDERS: PCP Family Medicine; Visit Provider Family Medicine
DX: O46.90 Antepartum hemorrhage, unspecified, unspecified trimester (principal); Z3A.00 Weeks of gestation of pregnancy not specified; R25.2 Cramp and spasm
CPT/HCPCS: 81001; 99211

== ENCOUNTER 2025-05-13 17:40 | Outpatient (CLI) | payer MEDICAID, SELFPAY ==
[2025-05-13] VITALS (7 sets, daily range): BP systolic 90–125; BP diastolic 59–84; PULSE 75–103; BMI 28.1
[2025-05-13 18:21] LABS: Glucose Urine UA Negative (Normal); Nitrate Urine Negative (Negative); Specific Gravity, Urine 1.023 (1.005-1.030)
[2025-05-13 18:26] LABS: Universal Test for UA Present (0)
[2025-05-13 18:42] LABS: UA Slide Review UA Slide Review Perf
== END 2025-05-13 19:25 | disposition home or self-care (01) ==
LOC: OPOB 17:40 → OBGYN 17:41
PROVIDERS: PCP Family Medicine; Visit Provider Family Medicine
DX: O26.899 Other specified pregnancy related conditions, unspecified trimester (principal); Z3A.00 Weeks of gestation of pregnancy not specified; R10.9 Unspecified abdominal pain
CPT/HCPCS: 59025; 81001; 99211

== ENCOUNTER 2025-05-29 19:56 | Outpatient (CLI) | payer MEDICAID, SELFPAY ==
[2025-05-29] VITALS (8 sets, daily range): BP systolic 124–135; BP diastolic 82–94; PULSE 82–127; RESP 16; TEMP 36.7; O2SAT 98; BMI 28.9
[2025-05-29 20:53] LABS: Glucose Urine UA Negative (Normal); Nitrate Urine Negative (Negative)
[2025-05-29 21:01] LABS: Universal Test for UA Present (0)
[2025-05-29 21:13] LABS: Specific Gravity, Urine 1.034 (1.005-1.030)
--- NOTE | 2025-05-29 21:49 | PC.NURSE ---
2230-Prescription for Macrobid 100mg [id number] called into [facility] pharmacy in [place].
== END 2025-05-29 21:49 | disposition home or self-care (01) ==
LOC: OPOB 19:57 → OBGYN 19:57
PROVIDERS: PCP Family Medicine; Visit Provider Family Medicine
DX: O26.859 Spotting complicating pregnancy, unspecified trimester (principal); Z3A.00 Weeks of gestation of pregnancy not specified; R10.9 Unspecified abdominal pain; R25.2 Cramp and spasm
CPT/HCPCS: 59025; 81001; 96372; 99211; J0696; J9999